=== PATIENT | male | born 1935 | race Hispanic/Latino ===

== ENCOUNTER 2017-07-20 14:19 | Emergency (ER) | payer MEDICARE ==
[2017-07-20] MEDS ORDERED: ACETAMINOPHEN-CODEINE 300/30MG TAB ONE (15:39)
== END 2017-07-20 15:45 | disposition home or self-care (01) ==
LOC: EDH 14:19
DX: H92.02 Otalgia, left ear (principal); H62.42 Otitis externa in other diseases classified elsewhere, left ear; I10 Essential (primary) hypertension; E78.5 Hyperlipidemia, unspecified; E11.9 Type 2 diabetes mellitus without complications; Z72.0 Tobacco use

== ENCOUNTER → 2018-05-31 | Outpatient (CLI) | payer MEDICARE ==
[~2018-05-31] MED LIST: DIATR MEGLU/DIATRIZOATE SODIUM 30 ML BOTTLE ONE
== END | disposition home or self-care (01) ==
LOC: RAH 11:26
PROVIDERS: ATTEND Internal Medicine Gastroenterology
DX: I12.9 Hypertensive chronic kidney disease with stage 1 through stage 4 chronic kidney disease, or unspecified chronic kidney disease (principal); E11.22 Type 2 diabetes mellitus with diabetic chronic kidney disease; N18.9 Chronic kidney disease, unspecified; J15.9 Unspecified bacterial pneumonia; M62.81 Muscle weakness (generalized); M62.50 Muscle wasting and atrophy, not elsewhere classified, unspecified site; R13.12 Dysphagia, oropharyngeal phase; R49.8 Other voice and resonance disorders; A41.9 Sepsis, unspecified organism; I63.9 Cerebral infarction, unspecified; E78.5 Hyperlipidemia, unspecified; R33.9 Retention of urine, unspecified; N40.1 Benign prostatic hyperplasia with lower urinary tract symptoms; Z16.12 Extended spectrum beta lactamase (ESBL) resistance; Z93.1 Gastrostomy status
CPT/HCPCS: 74018; Q9963